=== PATIENT | male | born 1995 | race Two or more races ===

== ENCOUNTER 2020-07-19 11:08 | Emergency (ER) | payer MEDICAID ==
[~2020-07-19] VITALS: Ht 160 cm; Wt 104.0 kg
[2020-07-19 11:43] VITALS: BP 155/95
[2020-07-19] MEDS ORDERED: KETOROLAC 60MG/2ML VIAL IM ONE (12:15)
== END 2020-07-19 13:35 | disposition home or self-care (01) ==
LOC: ER 11:08
DX: M62.830 Muscle spasm of back (principal)
CPT/HCPCS: 96372; 99283; J1885